=== PATIENT | male | born 1975 | race Caucasian/White ===

== ENCOUNTER 2017-06-30 09:20 | Emergency (ER) | payer MEDICAID, OTHER ==
[~2017-06-30] VITALS: Ht 170.2 cm; Wt 90.9 kg
[~2017-06-30 09:20] MED LIST: ABAC300T8 PO; BUPR-93 PO; GABA-533 PO; LAMI300T PO; QUET100T PO; RISP2 PO; [UNRECOGNIZED DRUG - CODE] PO
[2017-06-30] MEDS ORDERED: DIVA125T PO (09:52)
[2017-06-30] MEDS ORDERED: MIRT15 PO (09:52)
[2017-06-30] MEDS ORDERED: ACETAMINOPHEN 500 MG TABLET PO ONE (10:15)
[2017-06-30] MEDS ORDERED: SODIUM CHLORIDE 0.9% 1,000 ML IV ONE (10:15)
[2017-06-30 10:18] LABS: INFLUENZA TYPE A NEGATIVE FOR TYPE A (NEGATIVE); INFLUENZA TYPE B NEGATIVE FOR TYPE B (NEGATIVE)
[2017-06-30 10:32] LABS: BASOPHILS % (AUTO) 0.4 % (0.0-2.0); EOSINOPHILS % (AUTO) 0.1 % (1.0-6.0); HEMATOCRIT 42.4 % (41-53); HEMOGLOBIN 14.8 g/dL (13.5-17.5); LYMPHOCYTES # (AUTO) 2.2 K/uL (1.0-4.8); LYMPHOCYTES % (AUTO) 13.9 % (22.0-44.0); MEAN CORPUSCULAR HEMOGLOBIN 34.4 pg (26.0-34.0); MEAN CORPUSCULAR VOLUME 98 fL (80-100); MONOCYTES # (AUTO) 1.9 K/uL (0.1-1.0); MONOCYTES % (AUTO) 11.9 % (2.0-9.0); NEUTROPHILS # (AUTO) 11.6 K/uL (1.8-7.7); NEUTROPHILS % (AUTO) 73.7 % (40.0-70.0); PLATELET COUNT (AUTO) 258 K/uL (150-450); RED BLOOD CELL COUNT(AUTO) 4.31 MIL/uL (4.50-5.90); RED CELL DISTRIBUTION WIDTH 13.2 % (11.5-14.5)
[2017-06-30 11:16] LABS: LACTIC ACID 1.4 mmol/L (0.4-2.0)
[2017-06-30 11:20] LABS: ANION GAP 10 mmol/L (8-16); CARBON DIOXIDE 24 mmol/L (22-29); CHLORIDE 102 mmol/L (98-107); CREATININE 1.13 mg/dL (0.60-1.30); GLOMERULAR FILTR. RATE CALC > 60 mL/min (>60); GLUCOSE,RANDOM 115 mg/dL (70-110); SODIUM SERUM 136 mmol/L (136-145); UREA NITROGEN, BLOOD 17 mg/dL (7-18)
[2017-06-30 11:25] LABS: ALANINE AMINOTRANSFERASE 39 U/L (12-78); ALBUMIN 3.4 g/dL (3.4-5.0); ALKALINE PHOSPHATASE 60 U/L (46-116); ASPARTATE AMINOTRANSFERASE 42 U/L (15-37); BILIRUBIN,TOTAL 0.8 mg/dL (0.1-1.0)
[2017-06-30 11:40] VITALS: BP 132/80
[2017-06-30] MEDS ORDERED: DEXAMETHASONE SOD PHOS 4 MG/ML 5 ML VIAL IM ONE (12:15)
== END 2017-06-30 12:28 | disposition home or self-care (01) ==
LOC: EMS 09:21
DX: J02.9 Acute pharyngitis, unspecified (principal); F17.210 Nicotine dependence, cigarettes, uncomplicated; R05 Cough; R50.9 Fever, unspecified
CPT/HCPCS: 36415; 71045; 80053; 83605; 85025; 87804; 96372; 99285; 99406; J1100; J7030

== ENCOUNTER 2017-07-15 17:00 | Emergency (ER) | payer OTHER ==
[~2017-07-15] VITALS: Ht 170.2 cm; Wt 94.1 kg
[~2017-07-15 17:00] MED LIST changes: -ABAC300T8 PO; -BUPR-93 PO; +DIVA125T PO; -LAMI300T PO; +MIRT15 PO; -QUET100T PO; -RISP2 PO; -[UNRECOGNIZED DRUG - CODE] PO
[2017-07-15] MEDS ORDERED: ARIP2 PO (17:29)
[2017-07-15] MEDS ORDERED: IBUPROFEN 800 MG TABLET PO ONE (18:00)
[2017-07-15 20:07] LABS: BASOPHILS % (AUTO) 0.8 % (0.0-2.0); EOSINOPHILS % (AUTO) 1.3 % (1.0-6.0); HEMATOCRIT 43.6 % (41-53); HEMOGLOBIN 15.1 g/dL (13.5-17.5); LYMPHOCYTES % (AUTO) 24.3 % (22.0-44.0); MEAN CORPUSCULAR HEMOGLOBIN 34.2 pg (26.0-34.0); MEAN CORPUSCULAR HGB CONC 34.5 G/dL (31.0-37.0); MEAN CORPUSCULAR VOLUME 99 fL (80-100); MONOCYTES # (AUTO) 0.7 K/uL (0.1-1.0); MONOCYTES % (AUTO) 5.4 % (2.0-9.0); NEUTROPHILS # (AUTO) 8.3 K/uL (1.8-7.7); NEUTROPHILS % (AUTO) 68.2 % (40.0-70.0); PLATELET COUNT (AUTO) 285 K/uL (150-450); RED CELL DISTRIBUTION WIDTH 13.1 % (11.5-14.5)
[2017-07-15 20:07] LABS: APPEARANCE,URINE CLEAR (CLEAR); BILIRUBIN,URINE NEGATIVE (NEGATIVE); GLUCOSE, URINE (UA) NEGATIVE (NEGATIVE); KETONES,URINE NEGATIVE (NEGATIVE); LEUKOCYTE ESTERASE ,URINE NEGATIVE (NEGATIVE); NITRATE,URINE NEGATIVE (NEGATIVE); OCCULT BLOOD,URINE NEGATIVE (NEGATIVE); PROTEIN,URINE POS 1+ (NEGATIVE)
[2017-07-15 20:25] LABS: ANION GAP 9 mmol/L (8-16); CALCIUM, TOTAL 9.2 mg/dL (8.8-10.5); CARBON DIOXIDE 28 mmol/L (22-29); CHLORIDE 103 mmol/L (98-107); GLOMERULAR FILTR. RATE CALC > 60 mL/min (>60); GLUCOSE,RANDOM 92 mg/dL (70-110); POTASSIUM 4.7 mmol/L (3.5-5.1); SODIUM SERUM 140 mmol/L (136-145); UREA NITROGEN, BLOOD 13 mg/dL (7-18)
[2017-07-15 20:36] LABS: BACTERIA,URINE None Seen /HPF (None Seen); RBC,URINE 0-2 /HPF (0-2); SQUAMOUS EPITHELIAL CELL,UR None Seen /LPF (None Seen); WBC,URINE 0-2 /HPF (0-5)
[2017-07-15 20:50] LABS: ALANINE AMINOTRANSFERASE 50 U/L (12-78); ALBUMIN 3.7 g/dL (3.4-5.0); ALKALINE PHOSPHATASE 71 U/L (46-116); ASPARTATE AMINOTRANSFERASE 40 U/L (15-37); BILIRUBIN,TOTAL 0.7 mg/dL (0.1-1.0); CREATINE KINASE MB 1.1 ng/mL (0-5); CREATINE KINASE, TOTAL 134 U/L (39-308); TOTAL PROTEIN, SERUM 8.5 g/dL (6.4-8.2)
[2017-07-15 21:00] VITALS: BP 143/92
== END 2017-07-15 21:15 | disposition home or self-care (01) ==
LOC: EMS 17:16
DX: B34.9 Viral infection, unspecified (principal); R80.9 Proteinuria, unspecified; R11.2 Nausea with vomiting, unspecified; R10.9 Unspecified abdominal pain; F17.210 Nicotine dependence, cigarettes, uncomplicated; F12.90 Cannabis use, unspecified, uncomplicated; F11.90 Opioid use, unspecified, uncomplicated; F19.90 Other psychoactive substance use, unspecified, uncomplicated; Z88.0 Allergy status to penicillin; Z88.5 Allergy status to narcotic agent
CPT/HCPCS: 71046; 99285

== ENCOUNTER 2017-07-15 22:04 | Inpatient (IN) | payer MEDICAID, OTHER ==
[~2017-07-15] VITALS: Ht 170.2 cm; Wt 88.9 kg
[~2017-07-15 22:04] MED LIST changes: +ARIP2 PO
[2017-07-15] MEDS ORDERED: ZOLPIDEM TARTRATE 10 MG TABLET PO PRN (23:00)
[2017-07-15] MEDS ORDERED: HALOPERIDOL 5 MG TABLET PO PRN (23:00)
[2017-07-15 23:45] LABS: CHOL/HDL RATIO 2.8 (4.2-7.3); FREE T4 (FREE THYROXINE) 1.4 ng/dL (0.76-1.46); THYROID STIMULATING HORMONE 1.17 uIU/mL (0.36-3.74)
[2017-07-16 01:02] VITALS: BP 114/75
[2017-07-16] MEDS: LORazepam 2 MG TABLET PO PRN (02:51)
[2017-07-16] MEDS ORDERED: ONDANSETRON HCL 4 MG TABLET PO PRN (09:30)
[2017-07-16] MEDS ORDERED: MAGNESIUM HYDROXIDE SUSPENSION 30 ML UDCUP PO PRN (09:30)
[2017-07-16] MEDS ORDERED: ACETAMINOPHEN 325 MG TABLET PO PRN (09:30)
[2017-07-16] MEDS ORDERED: PETROLATUM,WHITE 71 GM JELLY TP PRN (09:30)
[2017-07-16] MEDS ORDERED: BENZOCAINE/MENTHOL LOZENGE MM PRN (09:30)
[2017-07-16] MEDS ORDERED: CloNIDine HCL 0.1 MG TABLET PO PRN (09:30)
[2017-07-16] MEDS ORDERED: GuaiFENesin/D-METHORPHAN/PHENYLEPH 5 ML LIQUID ORAL.SYG PO PRN (09:30)
[2017-07-16] MEDS ORDERED: MAG HYDROX/AL HYDROX/SIMETH ES 30 ML SUSPENSION UDCUP PO PRN (09:30)
[2017-07-16] MEDS ORDERED: IBUPROFEN 600 MG TABLET PO PRN (09:30)
[2017-07-16] MEDS ORDERED: ALBUTEROL SULFATE HFA 90 MCG/PUFF 8 GM INHALER IH PRN (09:30)
[2017-07-16] MEDS ORDERED: LOPERAMIDE HCL 2 MG CAPSULE PO PRN (09:30)
[2017-07-16] MEDS ORDERED: BACITRACIN 28.4 GM OINTMENT TP PRN (09:30)
[2017-07-16 10:25] VITALS: BP 108/57
[2017-07-16] MEDS: ABACAVIR SULFATE 300 MG TABLET PO SCH ×2 (12:54→17:00)
[2017-07-16] MEDS: GABAPENTIN 400 MG CAPSULE PO SCH ×2 (12:55→17:12)
[2017-07-16 16:16] VITALS: BP 126/66
[2017-07-16] MEDS: MIRTAZAPINE 15 MG TABLET PO SCH (20:15)
[2017-07-16] MEDS: EFAVIRENZ 600 MG TABLET PO SCH (21:00)
[2017-07-17 06:00] VITALS: BP 107/64
[2017-07-17] MEDS: OMEPRAZOLE 20 MG CAPSULE PO SCH (09:00)
[2017-07-17] MEDS: ABACAVIR SULFATE 300 MG TABLET PO SCH ×2 (09:00→17:00)
[2017-07-17 09:11] VITALS: BP 117/58
[2017-07-17] MEDS: BuPROPion HCL XL 150 MG ER TABLET PO SCH (09:42)
[2017-07-17] MEDS: MULTIVITAMINS WITH MINERALS, THERAPEUTIC TABLET PO SCH (09:44)
[2017-07-17] MEDS: ARIPiprazole 15 MG TABLET PO SCH (09:44)
[2017-07-17] MEDS: GABAPENTIN 400 MG CAPSULE PO SCH ×3 (09:56→16:27)
[2017-07-17 16:00] VITALS: BP 119/80
[2017-07-17] MEDS: MIRTAZAPINE 15 MG TABLET PO SCH (20:13)
[2017-07-17] MEDS: EFAVIRENZ 600 MG TABLET PO SCH (21:00)
[2017-07-18 05:59] VITALS: BP 110/68
[2017-07-18] MEDS: ARIPiprazole 15 MG TABLET PO SCH (08:04)
[2017-07-18] MEDS: MULTIVITAMINS WITH MINERALS, THERAPEUTIC TABLET PO SCH (08:04)
[2017-07-18] MEDS: GABAPENTIN 400 MG CAPSULE PO SCH ×3 (08:04→16:20)
[2017-07-18 08:05] VITALS: BP 118/64
[2017-07-18] MEDS: BuPROPion HCL XL 150 MG ER TABLET PO SCH (08:05)
[2017-07-18] MEDS: OMEPRAZOLE 20 MG CAPSULE PO SCH (08:07)
[2017-07-18] MEDS: ABACAVIR SULFATE 300 MG TABLET PO SCH ×2 (08:07→17:00)
[2017-07-18 08:24] LABS: BASOPHILS % (AUTO) 0.5 % (0.0-2.0); EOSINOPHILS % (AUTO) 3.1 % (1.0-6.0); HEMATOCRIT 42.3 % (41-53); HEMOGLOBIN 14.5 g/dL (13.5-17.5); LYMPHOCYTES # (AUTO) 2.3 K/uL (1.0-4.8); LYMPHOCYTES % (AUTO) 36.4 % (22.0-44.0); MEAN CORPUSCULAR HEMOGLOBIN 34.2 pg (26.0-34.0); MEAN CORPUSCULAR HGB CONC 34.2 G/dL (31.0-37.0); MEAN CORPUSCULAR VOLUME 100 fL (80-100); MONOCYTES # (AUTO) 0.5 K/uL (0.1-1.0); MONOCYTES % (AUTO) 7.8 % (2.0-9.0); NEUTROPHILS # (AUTO) 3.2 K/uL (1.8-7.7); NEUTROPHILS % (AUTO) 52.2 % (40.0-70.0); PLATELET COUNT (AUTO) 253 K/uL (150-450); RED BLOOD CELL COUNT(AUTO) 4.24 MIL/uL (4.50-5.90); RED CELL DISTRIBUTION WIDTH 13.1 % (11.5-14.5)
[2017-07-18 08:48] LABS: ALANINE AMINOTRANSFERASE 53 U/L (12-78); ALBUMIN 3.2 g/dL (3.4-5.0); ALKALINE PHOSPHATASE 64 U/L (46-116); ANION GAP 9 mmol/L (8-16); ASPARTATE AMINOTRANSFERASE 32 U/L (15-37); BILIRUBIN,TOTAL 0.4 mg/dL (0.1-1.0); CALCIUM, TOTAL 8.9 mg/dL (8.8-10.5); CARBON DIOXIDE 27 mmol/L (22-29); CHLORIDE 105 mmol/L (98-107); CREATININE 0.82 mg/dL (0.60-1.30); GLOMERULAR FILTR. RATE CALC > 60 mL/min (>60); GLUCOSE,RANDOM 90 mg/dL (70-110); POTASSIUM 3.9 mmol/L (3.5-5.1); SODIUM SERUM 141 mmol/L (136-145); TOTAL PROTEIN, SERUM 7.5 g/dL (6.4-8.2); UREA NITROGEN, BLOOD 11 mg/dL (7-18)
[2017-07-18 16:25] VITALS: BP 124/89
[2017-07-18] MEDS: LORazepam 2 MG TABLET PO PRN (18:22)
[2017-07-18] MEDS: MIRTAZAPINE 15 MG TABLET PO SCH (20:30)
[2017-07-18] MEDS: EFAVIRENZ 600 MG TABLET PO SCH (21:00)
[2017-07-19 05:55] VITALS: BP 125/83
[2017-07-19] MEDS: GABAPENTIN 400 MG CAPSULE PO SCH (08:26)
[2017-07-19] MEDS: MULTIVITAMINS WITH MINERALS, THERAPEUTIC TABLET PO SCH (08:26)
[2017-07-19] MEDS: BuPROPion HCL XL 150 MG ER TABLET PO SCH (08:26)
[2017-07-19 08:40] VITALS: BP 113/82
[2017-07-19] MEDS: LORazepam 2 MG TABLET PO PRN (09:03)
[2017-07-19] MEDS: ARIPiprazole 15 MG TABLET PO SCH (11:02)
[2017-07-19] MEDS: ABACAVIR SULFATE 300 MG TABLET PO SCH ×2 (11:02→16:26)
[2017-07-19] MEDS: OMEPRAZOLE 20 MG CAPSULE PO SCH (11:02)
[2017-07-19] MEDS: GABAPENTIN 300 MG CAPSULE PO SCH ×2 (12:38→16:26)
[2017-07-19 16:37] VITALS: BP 130/84
[2017-07-19] MEDS: EFAVIRENZ 600 MG TABLET PO SCH (20:33)
[2017-07-19] MEDS ORDERED: MIRTAZAPINE 30 MG TABLET PO SCH (21:00)
[2017-07-20 06:39] VITALS: BP 126/84
[2017-07-20] MEDS: MULTIVITAMINS WITH MINERALS, THERAPEUTIC TABLET PO SCH (07:59)
[2017-07-20] MEDS: BuPROPion HCL XL 150 MG ER TABLET PO SCH (07:59)
[2017-07-20] MEDS: GABAPENTIN 300 MG CAPSULE PO SCH ×3 (08:00→16:50)
[2017-07-20] MEDS: ARIPiprazole 10 MG TABLET PO SCH (08:00)
[2017-07-20] MEDS: OMEPRAZOLE 20 MG CAPSULE PO SCH (08:01)
[2017-07-20] MEDS: ABACAVIR SULFATE 300 MG TABLET PO SCH ×2 (08:01→16:50)
[2017-07-20 08:32] VITALS: BP 118/64
[2017-07-20 16:18] VITALS: BP 136/88
[2017-07-20] MEDS: MIRTAZAPINE 15 MG TABLET PO SCH (20:38)
[2017-07-20] MEDS: EFAVIRENZ 600 MG TABLET PO SCH (21:00)
[2017-07-21 01:35] VITALS: BP 122/76
[2017-07-21] MEDS: OMEPRAZOLE 20 MG CAPSULE PO SCH (07:58)
[2017-07-21] MEDS: MULTIVITAMINS WITH MINERALS, THERAPEUTIC TABLET PO SCH (07:58)
[2017-07-21] MEDS: GABAPENTIN 300 MG CAPSULE PO SCH ×3 (07:58→16:44)
[2017-07-21] MEDS: BuPROPion HCL XL 150 MG ER TABLET PO SCH (07:58)
[2017-07-21] MEDS: ABACAVIR SULFATE 300 MG TABLET PO SCH ×2 (07:59→16:44)
[2017-07-21] MEDS: ARIPiprazole 10 MG TABLET PO SCH (07:59)
[2017-07-21 08:46] VITALS: BP 126/84
[2017-07-21 17:43] VITALS: BP 126/89
[2017-07-21] MEDS: EFAVIRENZ 600 MG TABLET PO SCH (20:32)
[2017-07-21] MEDS: MIRTAZAPINE 15 MG TABLET PO SCH (20:32)
[2017-07-22 00:15] VITALS: BP 120/81
[2017-07-22] MEDS: GABAPENTIN 300 MG CAPSULE PO SCH ×3 (08:15→16:12)
[2017-07-22] MEDS: MULTIVITAMINS WITH MINERALS, THERAPEUTIC TABLET PO SCH (08:16)
[2017-07-22] MEDS: ARIPiprazole 10 MG TABLET PO SCH (08:16)
[2017-07-22] MEDS: BuPROPion HCL XL 150 MG ER TABLET PO SCH (08:16)
[2017-07-22] MEDS: ABACAVIR SULFATE 300 MG TABLET PO SCH ×2 (08:17→17:00)
[2017-07-22] MEDS: OMEPRAZOLE 20 MG CAPSULE PO SCH (08:17)
[2017-07-22 08:34] VITALS: BP 126/87
[2017-07-22 16:13] VITALS: BP 137/87
[2017-07-22] MEDS: MIRTAZAPINE 15 MG TABLET PO SCH (20:12)
[2017-07-22] MEDS: EFAVIRENZ 600 MG TABLET PO SCH (21:00)
[2017-07-23 07:22] VITALS: BP 119/88
[2017-07-23] MEDS: BuPROPion HCL XL 150 MG ER TABLET PO SCH (08:11)
[2017-07-23] MEDS: MULTIVITAMINS WITH MINERALS, THERAPEUTIC TABLET PO SCH (08:11)
[2017-07-23] MEDS: OMEPRAZOLE 20 MG CAPSULE PO SCH (08:11)
[2017-07-23] MEDS: GABAPENTIN 300 MG CAPSULE PO SCH ×2 (08:12→12:54)
[2017-07-23] MEDS: ARIPiprazole 10 MG TABLET PO SCH (08:12)
[2017-07-23] MEDS: ABACAVIR SULFATE 300 MG TABLET PO SCH (09:00)
[2017-07-23 09:10] VITALS: BP 127/79
[2017-07-23] MEDS ORDERED: ARIP10TA8 PO (12:50)
[2017-07-23] MEDS ORDERED: ABAC300T8 PO (12:54)
[2017-07-23] MEDS ORDERED: MIRT15 PO (12:54)
[2017-07-23] MEDS ORDERED: LAMI300T PO (12:54)
[2017-07-23] MEDS ORDERED: BUPR-93 PO (12:54)
[2017-07-23] MEDS ORDERED: OMEP20 PO (12:54)
[2017-07-23] MEDS ORDERED: GABA-531 PO (12:54)
[2017-07-23] MEDS ORDERED: [UNRECOGNIZED DRUG - CODE] PO (12:54)
== END 2017-07-23 15:00 | disposition home or self-care (01) | DRG 750 ==
LOC: EMS 22:06 → B2S 23:49
PROVIDERS: ADMIT Psychiatry & Neurology Psychiatry; ATTEND Psychiatry & Neurology Psychiatry
DX: F25.0 Schizoaffective disorder, bipolar type (principal); R45.851 Suicidal ideations; F11.20 Opioid dependence, uncomplicated; R45.850 Homicidal ideations; M19.90 Unspecified osteoarthritis, unspecified site; J44.9 Chronic obstructive pulmonary disease, unspecified; G47.00 Insomnia, unspecified; F41.9 Anxiety disorder, unspecified; F32.9 Major depressive disorder, single episode, unspecified; F12.90 Cannabis use, unspecified, uncomplicated; B18.2 Chronic viral hepatitis C; Z91.5 Personal history of self-harm; Z87.891 Personal history of nicotine dependence; Z88.0 Allergy status to penicillin; Z88.8 Allergy status to other drugs, medicaments and biological substances
CPT/HCPCS: 84439; 84443; 99285; G0480

== ENCOUNTER 2017-08-20 12:34 | Inpatient (IN) | payer MEDICAID ==
[~2017-08-20] VITALS: Ht 172.7 cm; Wt 88.9 kg
[~2017-08-20 12:34] MED LIST changes: -ARIP2 PO; +BUPR-93 PO; -DIVA125T PO; +GABA-531 PO; -GABA-533 PO; +QUET200XR PO
[2017-08-20 16:38] VITALS: BP 112/67
[2017-08-20] MEDS ORDERED: LORazepam 2 MG TABLET PO PRN (16:45)
[2017-08-20] MEDS ORDERED: QUEtiapine FUMARATE 100 MG TABLET PO PRN (16:45)
[2017-08-20] MEDS ORDERED: PNEUMOCOCCAL VACCINE POLYVALENT 0.5 ML VIAL [PPSV23] IM ONE (17:00)
[2017-08-20 17:05] VITALS: BP 130/82
[2017-08-20] MEDS: QUEtiapine FUMARATE 200 MG TABLET PO SCH (20:00)
[2017-08-20] MEDS: MIRTAZAPINE 15 MG TABLET PO SCH (20:00)
[2017-08-21 06:48] VITALS: BP 114/68
[2017-08-21 08:09] VITALS: BP 112/67
[2017-08-21] MEDS: GABAPENTIN 300 MG CAPSULE PO SCH ×3 (08:13→16:35)
[2017-08-21] MEDS: BuPROPion HCL XL 150 MG ER TABLET PO SCH (08:13)
[2017-08-21 16:00] VITALS: BP 137/81
[2017-08-21] MEDS: DiphenhydrAMINE HCL 25 MG CAPSULE PO SCH (18:19)
[2017-08-21] MEDS: ACETAMINOPHEN 325 MG TABLET PO PRN (18:19)
[2017-08-21] MEDS: QUEtiapine FUMARATE 200 MG TABLET PO SCH (20:26)
[2017-08-21] MEDS: ZOLPIDEM TARTRATE 10 MG TABLET PO PRN (20:27)
[2017-08-21] MEDS: MIRTAZAPINE 15 MG TABLET PO SCH (20:27)
[2017-08-22 03:25] VITALS: BP 102/77
[2017-08-22] MEDS: BuPROPion HCL XL 150 MG ER TABLET PO SCH (08:21)
[2017-08-22] MEDS: GABAPENTIN 300 MG CAPSULE PO SCH ×3 (08:21→16:47)
[2017-08-22] MEDS: DiphenhydrAMINE HCL 25 MG CAPSULE PO SCH ×2 (08:21→16:47)
[2017-08-22 08:33] VITALS: BP 128/71
[2017-08-22 16:00] VITALS: BP 137/82
[2017-08-22] MEDS: MIRTAZAPINE 15 MG TABLET PO SCH (20:55)
[2017-08-22] MEDS: ZOLPIDEM TARTRATE 10 MG TABLET PO PRN (20:56)
[2017-08-22] MEDS: QUEtiapine FUMARATE 200 MG TABLET PO SCH (20:56)
[2017-08-23 00:41] VITALS: BP 132/69
[2017-08-23] MEDS: ACETAMINOPHEN 325 MG TABLET PO PRN (03:27)
[2017-08-23] MEDS: DiphenhydrAMINE HCL 25 MG CAPSULE PO SCH ×2 (03:27→16:08)
[2017-08-23 03:30] VITALS: BP 116/64
[2017-08-23 08:18] VITALS: BP 111/60
[2017-08-23] MEDS: BuPROPion HCL XL 150 MG ER TABLET PO SCH (08:38)
[2017-08-23] MEDS: GABAPENTIN 300 MG CAPSULE PO SCH ×3 (08:38→16:07)
[2017-08-23 16:00] VITALS: BP 125/77
[2017-08-23] MEDS: QUEtiapine FUMARATE 200 MG TABLET PO SCH (20:28)
[2017-08-23] MEDS: ZOLPIDEM TARTRATE 10 MG TABLET PO PRN (20:28)
[2017-08-23] MEDS: MIRTAZAPINE 15 MG TABLET PO SCH (20:28)
[2017-08-24 01:55] VITALS: BP 116/69
[2017-08-24] MEDS: ACETAMINOPHEN 325 MG TABLET PO PRN (01:58)
[2017-08-24 08:00] VITALS: BP 126/73
[2017-08-24] MEDS: GABAPENTIN 300 MG CAPSULE PO SCH ×3 (08:18→16:09)
[2017-08-24] MEDS: DiphenhydrAMINE HCL 25 MG CAPSULE PO SCH ×2 (08:18→16:09)
[2017-08-24] MEDS: BuPROPion HCL XL 150 MG ER TABLET PO SCH (08:18)
[2017-08-24 16:00] VITALS: BP 119/76
[2017-08-24] MEDS: MIRTAZAPINE 15 MG TABLET PO SCH (20:21)
[2017-08-24] MEDS: QUEtiapine FUMARATE 200 MG TABLET PO SCH (20:21)
[2017-08-25 04:06] VITALS: BP 100/68
[2017-08-25] MEDS: ACETAMINOPHEN 325 MG TABLET PO PRN (04:07)
[2017-08-25 08:06] VITALS: BP 114/60
[2017-08-25] MEDS: DiphenhydrAMINE HCL 25 MG CAPSULE PO SCH ×2 (08:32→16:34)
[2017-08-25] MEDS: GABAPENTIN 300 MG CAPSULE PO SCH ×3 (08:32→16:34)
[2017-08-25] MEDS: BuPROPion HCL XL 150 MG ER TABLET PO SCH (08:32)
[2017-08-25 16:00] VITALS: BP 124/89
[2017-08-25] MEDS: MIRTAZAPINE 15 MG TABLET PO SCH (20:40)
[2017-08-25] MEDS: ZOLPIDEM TARTRATE 10 MG TABLET PO PRN (20:41)
[2017-08-25] MEDS: QUEtiapine FUMARATE 200 MG TABLET PO SCH (20:41)
[2017-08-26] MEDS: ACETAMINOPHEN 325 MG TABLET PO PRN (00:26)
[2017-08-26 00:28] VITALS: BP 119/76
[2017-08-26 08:16] VITALS: BP 111/65
[2017-08-26] MEDS: DiphenhydrAMINE HCL 25 MG CAPSULE PO SCH ×2 (08:35→16:30)
[2017-08-26] MEDS: GABAPENTIN 300 MG CAPSULE PO SCH ×3 (08:35→16:30)
[2017-08-26] MEDS: BuPROPion HCL XL 150 MG ER TABLET PO SCH (08:35)
[2017-08-26 16:00] VITALS: BP 133/88
[2017-08-26] MEDS: MIRTAZAPINE 15 MG TABLET PO SCH (20:40)
[2017-08-26] MEDS: ZOLPIDEM TARTRATE 10 MG TABLET PO PRN (20:40)
[2017-08-26] MEDS: QUEtiapine FUMARATE 200 MG TABLET PO SCH (20:40)
[2017-08-27 06:49] VITALS: BP 108/65
[2017-08-27 08:07] VITALS: BP 112/68
[2017-08-27] MEDS: BuPROPion HCL XL 150 MG ER TABLET PO SCH (08:08)
[2017-08-27] MEDS: GABAPENTIN 300 MG CAPSULE PO SCH ×3 (08:08→16:03)
[2017-08-27] MEDS: DiphenhydrAMINE HCL 25 MG CAPSULE PO SCH ×2 (08:08→16:03)
== END 2017-08-27 16:30 | disposition home or self-care (01) | DRG 750 ==
LOC: B3A 16:22
PROVIDERS: ADMIT Psychiatry & Neurology Psychiatry; ATTEND Psychiatry & Neurology Psychiatry
DX: F25.0 Schizoaffective disorder, bipolar type (principal); R45.850 Homicidal ideations; R45.851 Suicidal ideations; G40.909 Epilepsy, unspecified, not intractable, without status epilepticus; B19.20 Unspecified viral hepatitis C without hepatic coma; F60.3 Borderline personality disorder; F12.90 Cannabis use, unspecified, uncomplicated; F15.90 Other stimulant use, unspecified, uncomplicated; F41.9 Anxiety disorder, unspecified; K21.9 Gastro-esophageal reflux disease without esophagitis; Z79.899 Other long term (current) drug therapy
CPT/HCPCS: 87081

== ENCOUNTER 2017-09-22 22:00 | Inpatient (IN) | payer MEDICAID ==
[~2017-09-22] VITALS: Ht 172.7 cm; Wt 82.6 kg
[2017-09-22] MEDS ORDERED: HALOPERIDOL 5 MG TABLET PO PRN (22:30)
[2017-09-22] MEDS ORDERED: LORazepam 2 MG TABLET PO PRN (22:30)
[2017-09-22] MEDS ORDERED: ZOLPIDEM TARTRATE 10 MG TABLET PO PRN (22:30)
[2017-09-22 22:42] VITALS: BP 132/82
[2017-09-22] MEDS ORDERED: PNEUMOCOCCAL VACCINE POLYVALENT 0.5 ML VIAL [PPSV23] IM ONE (23:30)
[2017-09-23 00:49] VITALS: BP 128/80
[2017-09-23 08:28] VITALS: BP 106/69
[2017-09-23 16:30] VITALS: BP 112/65
[2017-09-23] MEDS: ABACAVIR SULFATE 300 MG TABLET PO SCH (17:00)
[2017-09-23] MEDS: QUEtiapine FUMARATE 200 MG TABLET PO SCH (20:19)
[2017-09-23] MEDS: EFAVIRENZ 600 MG TABLET PO SCH (21:00)
[2017-09-24] MEDS: GABAPENTIN 300 MG CAPSULE PO SCH ×3 (08:49→16:18)
[2017-09-24] MEDS: BuPROPion HCL XL 150 MG ER TABLET PO SCH (08:49)
[2017-09-24] MEDS: ABACAVIR SULFATE 300 MG TABLET PO SCH ×2 (08:50→17:00)
[2017-09-24 09:34] VITALS: BP 120/80
[2017-09-24 16:05] VITALS: BP 106/64
[2017-09-24] MEDS: EFAVIRENZ 600 MG TABLET PO SCH (21:00)
[2017-09-24] MEDS: QUEtiapine FUMARATE 200 MG TABLET PO SCH (21:02)
[2017-09-25 06:57] VITALS: BP 124/67
[2017-09-25 08:07] VITALS: BP 112/65
[2017-09-25] MEDS: GABAPENTIN 300 MG CAPSULE PO SCH ×3 (08:12→16:02)
[2017-09-25] MEDS: BuPROPion HCL XL 150 MG ER TABLET PO SCH (08:12)
[2017-09-25] MEDS: ABACAVIR SULFATE 300 MG TABLET PO SCH ×2 (08:14→17:00)
[2017-09-25 16:23] VITALS: BP 118/75
[2017-09-25] MEDS: QUEtiapine FUMARATE 200 MG TABLET PO SCH (20:09)
[2017-09-25] MEDS: EFAVIRENZ 600 MG TABLET PO SCH (21:00)
[2017-09-26 01:00] VITALS: BP 100/60
[2017-09-26 08:13] VITALS: BP 100/60
[2017-09-26] MEDS: GABAPENTIN 300 MG CAPSULE PO SCH (08:16)
[2017-09-26] MEDS: BuPROPion HCL XL 150 MG ER TABLET PO SCH (08:16)
[2017-09-26] MEDS ORDERED: ABAC300T9 PO (08:16)
[2017-09-26] MEDS ORDERED: EFAV600T8 PO (08:16)
[2017-09-26] MEDS ORDERED: LAMI300T10 PO (08:16)
[2017-09-26] MEDS: ABACAVIR SULFATE 300 MG TABLET PO SCH (08:18)
== END 2017-09-26 10:51 | disposition home or self-care (01) | DRG 750 ==
LOC: B2S 22:27
PROVIDERS: ADMIT Psychiatry & Neurology Psychiatry; ATTEND Psychiatry & Neurology Psychiatry
DX: F25.9 Schizoaffective disorder, unspecified (principal); B19.20 Unspecified viral hepatitis C without hepatic coma; F12.90 Cannabis use, unspecified, uncomplicated; F15.90 Other stimulant use, unspecified, uncomplicated; K21.9 Gastro-esophageal reflux disease without esophagitis; M19.90 Unspecified osteoarthritis, unspecified site; Z87.828 Personal history of other (healed) physical injury and trauma; Z28.21 Immunization not carried out because of patient refusal; Z88.0 Allergy status to penicillin; Z88.8 Allergy status to other drugs, medicaments and biological substances; Z79.899 Other long term (current) drug therapy
CPT/HCPCS: 87081

== ENCOUNTER 2018-05-25 03:15 | Inpatient (IN) | payer MEDICAID ==
[~2018-05-25] VITALS: Ht 172.7 cm; Wt 68.6 kg
[~2018-05-25 03:15] MED LIST changes: +ABAC300T9 PO; +EFAV600T8 PO; +LAMI300T10 PO; -MIRT15 PO
[2018-05-25 07:15] VITALS: BP 131/87
[2018-05-25] MEDS ORDERED: ZOLPIDEM TARTRATE 10 MG TABLET PO PRN (08:15)
[2018-05-25] MEDS ORDERED: LORazepam 2 MG TABLET PO PRN (08:15)
[2018-05-25] MEDS ORDERED: HALOPERIDOL 5 MG TABLET PO PRN (08:15)
[2018-05-25 08:48] VITALS: BP 125/74
[2018-05-25] MEDS ORDERED: PNEUMOCOCCAL VACCINE POLYVALENT 0.5 ML VIAL [PPSV23] IM ONE (09:30)
[2018-05-25 16:10] VITALS: BP 122/86
[2018-05-25] MEDS: GABAPENTIN 300 MG CAPSULE PO SCH (16:19)
[2018-05-25] MEDS: ABACAVIR SULFATE 300 MG TABLET PO SCH (16:19)
[2018-05-25] MEDS ORDERED: QUEtiapine FUMARATE 200 MG TABLET PO SCH (21:00)
[2018-05-25] MEDS: MIRTAZAPINE 15 MG TABLET PO SCH (21:05)
[2018-05-25] MEDS: EFAVIRENZ 600 MG TABLET PO SCH (21:06)
[2018-05-26 06:41] VITALS: BP 115/70
[2018-05-26] MEDS: ABACAVIR SULFATE 300 MG TABLET PO SCH ×2 (09:00→18:04)
[2018-05-26 09:24] VITALS: BP 120/70
[2018-05-26] MEDS: GABAPENTIN 300 MG CAPSULE PO SCH ×3 (09:24→18:20)
[2018-05-26] MEDS: BuPROPion HCL XL 150 MG ER TABLET PO SCH (09:24)
[2018-05-26] MEDS ORDERED: DOCUSATE SODIUM 100 MG CAPSULE PO PRN (15:30)
[2018-05-26] MEDS ORDERED: ACETAMINOPHEN 325 MG TABLET PO PRN (15:30)
[2018-05-26] MEDS ORDERED: CloNIDine HCL 0.1 MG TABLET PO PRN (15:30)
[2018-05-26] MEDS ORDERED: ALBUTEROL SULFATE HFA 90 MCG/PUFF 8 GM INHALER IH PRN (15:30)
[2018-05-26] MEDS ORDERED: GuaiFENesin/D-METHORPHAN [SUGAR-FREE] 200-20MG/10 ML SYRUP UDCUP PO PRN (15:30)
[2018-05-26] MEDS ORDERED: NICOTINE 14 MG/24 HOUR PATCH TD PRN (15:30)
[2018-05-26] MEDS ORDERED: MAGNESIUM HYDROXIDE SUSPENSION 30 ML UDCUP PO PRN (15:30)
[2018-05-26] MEDS ORDERED: PETROLATUM,WHITE 71 GM JELLY TP PRN (15:30)
[2018-05-26] MEDS ORDERED: IBUPROFEN 400 MG TABLET PO PRN (15:30)
[2018-05-26] MEDS ORDERED: ONDANSETRON HCL 4 MG TABLET PO PRN (15:30)
[2018-05-26] MEDS ORDERED: MAG HYDROX/AL HYDROX/SIMETH ES 30 ML SUSPENSION UDCUP PO PRN (15:30)
[2018-05-26] MEDS ORDERED: LOPERAMIDE HCL 2 MG CAPSULE PO PRN (15:30)
[2018-05-26 17:44] VITALS: BP 122/72
[2018-05-26] MEDS: MIRTAZAPINE 15 MG TABLET PO SCH (20:06)
[2018-05-26] MEDS: QUEtiapine FUMARATE 300 MG TABLET PO SCH (20:07)
[2018-05-26] MEDS: EFAVIRENZ 600 MG TABLET PO SCH (20:08)
[2018-05-27 01:49] VITALS: BP 131/79
[2018-05-27] MEDS: ABACAVIR SULFATE 300 MG TABLET PO SCH ×2 (09:00→17:00)
[2018-05-27] MEDS: BuPROPion HCL XL 150 MG ER TABLET PO SCH (09:15)
[2018-05-27] MEDS: GABAPENTIN 300 MG CAPSULE PO SCH ×3 (09:15→16:08)
[2018-05-27 16:30] VITALS: BP 113/82
[2018-05-27] MEDS: MIRTAZAPINE 15 MG TABLET PO SCH (20:46)
[2018-05-27] MEDS: QUEtiapine FUMARATE 300 MG TABLET PO SCH (20:46)
[2018-05-27] MEDS: EFAVIRENZ 600 MG TABLET PO SCH (21:00)
[2018-05-28 06:32] VITALS: BP 122/79
[2018-05-28] MEDS: ABACAVIR SULFATE 300 MG TABLET PO SCH ×3 (09:00→17:36)
[2018-05-28 09:15] VITALS: BP 107/62
[2018-05-28] MEDS: BuPROPion HCL XL 150 MG ER TABLET PO SCH (09:22)
[2018-05-28] MEDS: GABAPENTIN 300 MG CAPSULE PO SCH ×3 (09:22→17:36)
[2018-05-28] MEDS: EFAVIRENZ 600 MG TABLET PO SCH (21:01)
[2018-05-28] MEDS: MIRTAZAPINE 15 MG TABLET PO SCH (21:04)
[2018-05-28] MEDS: QUEtiapine FUMARATE 300 MG TABLET PO SCH (21:08)
[2018-05-29 06:26] VITALS: BP 122/75
[2018-05-29 08:48] VITALS: BP 105/62
[2018-05-29] MEDS: ABACAVIR SULFATE 300 MG TABLET PO SCH ×2 (09:00→17:00)
[2018-05-29] MEDS: BuPROPion HCL XL 150 MG ER TABLET PO SCH (09:26)
[2018-05-29] MEDS: GABAPENTIN 300 MG CAPSULE PO SCH ×3 (09:27→16:07)
[2018-05-29 16:40] VITALS: BP 117/82
[2018-05-29] MEDS: QUEtiapine FUMARATE 300 MG TABLET PO SCH (20:11)
[2018-05-29] MEDS: MIRTAZAPINE 15 MG TABLET PO SCH (20:14)
[2018-05-29] MEDS: EFAVIRENZ 600 MG TABLET PO SCH (21:00)
[2018-05-30 00:50] VITALS: BP 103/62
[2018-05-30 08:22] VITALS: BP 104/68
[2018-05-30] MEDS: GABAPENTIN 300 MG CAPSULE PO SCH ×3 (08:34→16:05)
[2018-05-30] MEDS: BuPROPion HCL XL 150 MG ER TABLET PO SCH (08:34)
[2018-05-30] MEDS: ABACAVIR SULFATE 300 MG TABLET PO SCH ×2 (09:00→16:16)
[2018-05-30 16:09] VITALS: BP 113/64
[2018-05-30] MEDS: QUEtiapine FUMARATE 200 MG TABLET PO SCH (20:19)
[2018-05-30] MEDS: MIRTAZAPINE 15 MG TABLET PO SCH (20:19)
[2018-05-30] MEDS: EFAVIRENZ 600 MG TABLET PO SCH (20:23)
[2018-05-31 06:32] VITALS: BP 117/80
[2018-05-31] MEDS: GABAPENTIN 300 MG CAPSULE PO SCH ×3 (08:59→16:08)
[2018-05-31] MEDS: ABACAVIR SULFATE 300 MG TABLET PO SCH ×2 (08:59→16:08)
[2018-05-31] MEDS: BuPROPion HCL XL 150 MG ER TABLET PO SCH (09:00)
[2018-05-31 09:05] VITALS: BP 111/72
[2018-05-31 16:09] VITALS: BP 103/65
[2018-05-31] MEDS: EFAVIRENZ 600 MG TABLET PO SCH (20:36)
[2018-05-31] MEDS: QUEtiapine FUMARATE 200 MG TABLET PO SCH (20:36)
[2018-05-31] MEDS: MIRTAZAPINE 15 MG TABLET PO SCH (20:37)
[2018-06-01] MEDS: ABACAVIR SULFATE 300 MG TABLET PO SCH ×2 (08:16→16:28)
[2018-06-01] MEDS: GABAPENTIN 300 MG CAPSULE PO SCH ×3 (08:16→16:26)
[2018-06-01] MEDS: BuPROPion HCL XL 150 MG ER TABLET PO SCH (08:16)
[2018-06-01 09:50] VITALS: BP 133/83
[2018-06-01 15:53] VITALS: BP 130/82
[2018-06-01 16:01] VITALS: BP 130/82
[2018-06-01] MEDS: QUEtiapine FUMARATE 200 MG TABLET PO SCH (20:07)
[2018-06-01] MEDS: EFAVIRENZ 600 MG TABLET PO SCH (20:08)
[2018-06-01] MEDS: MIRTAZAPINE 15 MG TABLET PO SCH (20:08)
[2018-06-02 05:50] VITALS: BP 124/78
[2018-06-02] MEDS: GABAPENTIN 300 MG CAPSULE PO SCH ×2 (08:23→12:48)
[2018-06-02] MEDS: BuPROPion HCL XL 150 MG ER TABLET PO SCH (08:23)
[2018-06-02] MEDS: ABACAVIR SULFATE 300 MG TABLET PO SCH ×2 (08:24→08:39)
[2018-06-02] MEDS ORDERED: MIRT15 PO (10:38)
== END 2018-06-02 13:05 | disposition home or self-care (01) | DRG 750 ==
LOC: B2S 08:17 → EDSTATUS 09:07 → B2S 05-29 14:20
PROVIDERS: ADMIT Psychiatry & Neurology Psychiatry; ATTEND Psychiatry & Neurology Psychiatry
DX: F25.0 Schizoaffective disorder, bipolar type (principal); R45.851 Suicidal ideations; R45.850 Homicidal ideations; B19.20 Unspecified viral hepatitis C without hepatic coma; M19.90 Unspecified osteoarthritis, unspecified site; F60.3 Borderline personality disorder; F12.90 Cannabis use, unspecified, uncomplicated; G40.909 Epilepsy, unspecified, not intractable, without status epilepticus; F41.9 Anxiety disorder, unspecified; G56.00 Carpal tunnel syndrome, unspecified upper limb; R45.87 Impulsiveness; Z20.6 Contact with and (suspected) exposure to human immunodeficiency virus [HIV]; Z91.5 Personal history of self-harm; Z71.51 Drug abuse counseling and surveillance of drug abuser; Z79.899 Other long term (current) drug therapy; Z88.8 Allergy status to other drugs, medicaments and biological substances; Z88.0 Allergy status to penicillin
CPT/HCPCS: 90732